=== PATIENT | female | born 1940 | race Caucasian/White ===

== ENCOUNTER → 2016-09-22 | Outpatient (CLI) | payer OTHER | LOC: BMCIMAGING 10:07 | PROVIDERS: ATTEND Podiatrist Foot & Ankle Surgery | DX: M19.071 Primary osteoarthritis, right ankle and foot (principal); M19.072 Primary osteoarthritis, left ankle and foot; M85.471 Solitary bone cyst, right ankle and foot; Q74.8 Other specified congenital malformations of limb(s) ==

== ENCOUNTER → 2018-03-02 | Outpatient (CLI) | payer OTHER ==
[~2018-03-02] MED LIST: IOPAMIDOL (ISOVUE-300) 200 ML BTL ONE
== END | disposition home or self-care (01) ==
LOC: FIMAGING 11:47
PROVIDERS: ATTEND Urology
DX: M75.111 Incomplete rotator cuff tear or rupture of right shoulder, not specified as traumatic (principal); N39.0 Urinary tract infection, site not specified; M75.51 Bursitis of right shoulder; M19.011 Primary osteoarthritis, right shoulder; M67.921 Unspecified disorder of synovium and tendon, right upper arm; N21.0 Calculus in bladder; I72.8 Aneurysm of other specified arteries; D25.9 Leiomyoma of uterus, unspecified; R93.41 Abnormal radiologic findings on diagnostic imaging of renal pelvis, ureter, or bladder; R93.3 Abnormal findings on diagnostic imaging of other parts of digestive tract
CPT/HCPCS: 73221; 74178; Q9967; 82565-PO

== ENCOUNTER 2018-03-31 06:22 | Day surgery (SDC) | payer OTHER ==
[2018-03-31] MEDS ORDERED: LR 1,000 ML IV ONE (06:37)
[2018-03-31] MEDS ORDERED: levOFLOXACIN 500 MG/DEXTROSE 100 ML IV ONE (07:20)
--- NOTE | 2018-03-31 07:20 | PDHPUP ---
History & Physical Update H&P update statement: This history and physical update is based on an assessment of the patient which was completed after admission or registration (within 24 hours), but prior to the surgery/procedure. H&P update: H&P reviewed & patient examined, no change in patient's condition since H&P completed
--- NOTE | 2018-03-31 07:41 | PDANEPAE ---
ANE History of Present Illness here for cystolithopexy ANE Past Medical History - Cardiovascular History Hx Hypertension: No Hx Arrhythmias: No Hx Chest Pain: No Hx Coronary Artery / Peripheral Vascular Disease: No Hx CHF / Valvular Disease: No Hx Palpitations: No - Pulmonary History Hx COPD: No Hx Asthma/Reactive Airway Disease: No Hx Recent Upper Respiratory Infection: No Hx Oxygen in Use at Home: No Hx Sleep Apnea: No Sleep Apnea Screening Result - Last Documented: Negative - Neurologic History Hx Cerebrovascular Accident: No Hx Seizures: No Hx Dementia: No - Endocrine History Hx Diabetes: No - Renal History Hx Renal Disorders: No - Liver History Hx Hepatic Disorders: No - Neurological & Psychiatric Hx Hx Neurological and Psychiatric Disorders: No - Cancer History Hx Cancer: No - Congenital Disorder History Hx Congenital Disorders: No - Other Health History Other Health History: sinus/nasal congestion - Chronic Pain History Chronic Pain: Yes (right shoulder) - Surgical History Prior Surgeries: bilat knee replacements ANE Review of Systems Review of systems is: negative Review of Systems: - Exercise capacity Exercise capacity: >=4 METS METS (RN): 4 METS ANE Patient History - Allergies Allergies/Adverse Reactions: Penicillins Allergy (Intermediate, Verified 03/31/18 06:46) Anaphylaxis ADHESIVES Allergy (Mild, Uncoded 09/20/12 13:59) RED, ITCHY GRASS Allergy (Mild, Uncoded 09/20/12 13:59) BUMPS detergent Allergy (Uncoded 03/31/18 06:46) Rash - Home Medications Home medications: home medication list seen and reviewed Home Medications: NK [No Known Home Meds] 03/30/18 [Last Taken Unknown] - NPO status NPO Status: no food or drink >8 hours NPO Since - Liquids (Date): 03/30/18 NPO Since - Liquids (Time): 22:00 NPO Since - Solids (Date): 03/30/18 NPO Since - Solids (Time): 17:00 - Anes Hx Anes Hx: no prior problems - Smoking Hx Smoking Status: Former smoker - Family Anes Hx Family Hx Anesthesia Complications: none ANE Labs/Vital Signs - Vital Signs Vital Signs: reviewed preoperatively; see RN documention for details Blood Pressure: 116/69 Heart Rate: 68 Respiratory Rate: 18 O2 Sat (%): 97 Height: 154.94 cm Weight: 52.163 kg ANE Physical Exam - Airway Neck exam: FROM Mallampati Score: Class 1 - Pulmonary Pulmonary: no respiratory distress - Cardiovascular Cardiovascular: regular rate and rhythym - ASA Status ASA Status: II ANE Anesthesia Plan Anesthesia Plan: GA w LMA
[2018-03-31] MEDS ORDERED: PROPOFOL/EMULSION 500 MG/50 ML BOTTLE IV ONE (07:47)
[2018-03-31] MEDS ORDERED: fentaNYL 100 MCG/2 ML INJ ONE (07:51)
[2018-03-31] MEDS ORDERED: DEXAMETHASONE 4 MG/ML VIAL ONE (07:55)
[2018-03-31] MEDS ORDERED: ONDANSETRON 4 MG/2 ML VIAL ONE (07:56)
[2018-03-31] MEDS ORDERED: NALOXONE HCL 0.4 MG/ML INJ IVP PRN (08:29)
[2018-03-31] MEDS ORDERED: HYDROmorphONE/DILAUDID 2 MG/ML INJ IVP PRN (08:29)
[2018-03-31] MEDS ORDERED: ALBUTEROL 3 ML DEYVIAL IH PRN (08:29)
[2018-03-31] MEDS ORDERED: LR 500 ML IV PRN (08:29)
[2018-03-31] MEDS ORDERED: DEXAMETHASONE 4 MG/ML VIAL IVP PRN (08:29)
[2018-03-31] MEDS ORDERED: ONDANSETRON 4 MG/2 ML VIAL IVP PRN (08:29)
[2018-03-31] MEDS ORDERED: NS 500 ML IV PRN (08:29)
--- NOTE | 2018-03-31 09:29 | GOP ---
DATE OF ADMISSION: 03/31/2018 PREOPERATIVE DIAGNOSIS: Bladder stone. POSTOPERATIVE DIAGNOSIS: Bladder stone with bladder foreign body. PROCEDURE: Cystoscopy, laser litholapaxy, removal of bladder foreign body. ANESTHESIA: General. INDICATIONS: This is a woman who presented with recurrent infection. OPERATIVE PROCEDURE: Consent obtained. Patient was brought in the operating room. Once general ane sthesia was underway, She was prepped and draped in the normal sterile fashion. A 25-Japanese rigid cy stoscope was passed into the bladder under direct vision. The bladder showed a large stone and eryth adia throughout. A 550 micron laser fiber was then passed through the scope, and utilizing laser ener gy at varying burrell, the stone was broken up into small pieces. The [employer] evacuator was utilized to remove the stone fragments. These were sent to Pathology for evaluation. Upon resection of the ston e, bladder foreign body was identified. This was noted to be a metallic spring, consistent with a abiel ne anchor. Rigid forceps were utilized to grasp this and pull this from the bladder wall. There als o seemed to be evidence of a mesh sling within the bladder. A hot knife was used to cut this out. T he base was cauterized with the bipolar button. All bleeding was controlled with this button. A Fol ey cathter was inserted, and the patient was transferred to the recovery room in good condition. /[id number]/MODL
--- NOTE | 2018-03-31 09:33 | POSTANESTH ---
Post Anesthetic Evaluation Cardiovascular Status: Normal, Stable Respiratory Status: Normal, Stable Level of Consciousness/Mental Status: Can Participate in Eval Pain Control: Adequate, Prn Tx Ordered Nausea/Vomiting Control: Adequate, Prn Tx Ordered Complications Possibly Related to Anesthesia: None Noted
[2018-03-31 11:01] VITALS: BP 122/67
== END 2018-03-31 11:08 | disposition home or self-care (01) ==
LOC: FSGY 06:22
PROVIDERS: ATTEND Urology
PROC: 0TFB8ZZ Fragmentation in Bladder, Via Natural or Artificial Opening Endoscopic (ICD-10-PCS; principal; 2018-03-31 07:48)
PROC: 0TCB8ZZ Extirpation of Matter from Bladder, Via Natural or Artificial Opening Endoscopic (ICD-10-PCS; principal; 2018-03-31 07:48)
DX: N21.0 Calculus in bladder (principal); T19.1XXA Foreign body in bladder, initial encounter
CPT/HCPCS: 82365-90; J1100; J1956; J2405; J2704; J3010

== ENCOUNTER 2018-05-18 22:37 | Emergency (ER) | payer OTHER ==
--- NOTE | 2018-05-18 23:05 | EDPHY ---
H & P Stated Complaint: hasn't urinated since 1699 Time Seen by Provider: 05/18/18 22:56 HPI/ROS: HPI: This is an 78-year-old female who presents with Chief Complaint: hasn't urinated since 1699 Location: Quality: Inability to urinate Duration: 6 hr Signs and Symptoms: no fever, no nausea, no vomiting, no hematemesis, no blood in stool, no abdominal bloating, no diarrhea, no back pain, no urinary symptoms , no vaginal bleeding/discharge, no indigestion, no chest pain, no shortness of breath, + suprapubic pressure Timing: Acute, rapidly worsening Severity: Moderate Context: Patient reports that she had "urethral plumping" performed today by Dr. Rice for urinary incontinence. She reports that she was able to urinate after surgery but has not been able to urinate in the last 6 hr. She reports suprapubic discomfort. Denies fever, back pain, vaginal discharge, vaginal bleeding. Modifying Factors: None Comment: ROS: A comprehensive 10 system review of systems is otherwise negative aside from elements mentioned in the history of present illness. MEDICAL/SURGICAL/SOCIAL HISTORY: Medical history: bilat knees, bladder stone, procedure for incont Surgical history: Denies Social history: Former smoker. Family history noncontributory. CONSTITUTIONAL: Adult white female who appears younger than stated age, pacing around room, awake and alert, no obvious distress HEENT: Atraumatic and normocephalic, PERRL, EOMI. Nares patent; no rhinorrhea; no nasal mucosal edema. Tympanic membranes clear. Oropharynx clear, no exudate and moist pink mucosa. Airway patent. No lymphadenopathy. No meningismus. Cardiovascular: Normal S1/S2, tachycardia, regular rhythm, without murmur rub or gallop. PULMONARY/CHEST: Symmetrical and nontender. Clear to auscultation bilaterally. Good air movement. No accessory muscle usage. ABDOMEN: Soft, nondistended, moderate suprapubic tenderness, no rebound, no guarding, no peritoneal signs, no masses or organomegaly. No CVAT. EXTREMITIES: 2/2 pulses, strength 5/5, no deformities, no clubbing, no cyanosis or edema. NEUROLOGICAL: no focal neuro deficits. GCS 15. SKIN: Warm and dry, no erythema. no rash. Good capillary refill. Source: Patient Exam Limitations: No limitations - Personal History Current Tetanus/Diphtheria Vaccine: Unsure Current Tetanus Diphtheria and Acellular Pertussis (TDAP): Unsure - Medical/Surgical History Hx Asthma: No Hx Chronic Respiratory Disease: No Hx Diabetes: No Hx Cardiac Disease: No Hx Renal Disease: No Hx Cirrhosis: No Hx Alcoholism: No Hx HIV/AIDS: No Hx Splenectomy or Spleen Trauma: No Other PMH: bilat knees, bladder stone, procedure for incont - Social History Smoking Status: Former smoker Constitutional: Initial Vital Signs Temperature (C) 37.2 C 05/18/18 22:40 Heart Rate 104 H 05/18/18 22:40 Respiratory Rate 18 05/18/18 22:40 Blood Pressure 203/105 H 05/18/18 22:40 O2 Sat (%) 97 05/18/18 22:40 O2 Delivery Mode Room Air Allergies/Adverse Reactions: Penicillins Allergy (Intermediate, Verified 05/18/18 22:44) Anaphylaxis ADHESIVES Allergy (Mild, Uncoded 05/18/18 22:44) RED, ITCHY GRASS Allergy (Mild, Uncoded 05/18/18 22:44) BUMPS detergent Allergy (Uncoded 05/18/18 22:44) Rash Home Medications: Medication Instructions Recorded NK [No Known Home Meds] 05/18/18 Medical Decision Making ED Course/Re-evaluation: Signs reviewed and show extremely elevated blood pressure and tachycardia likely secondary to pain. Bladder scan at bedside per tech shows 908 mL Castellano catheter placed and 800 cc clear yellow urine removed. Urinalysis ordered and shows 2+ blood, likely from Castellano insertion but no cornoa signs of infection. Repeat blood pressure at discharge was 169/89 Patient has a follow-up appointment already scheduled with Dr. Rice tomorrow. This patient was seen under the supervision of my secondary supervising physician. I evaluated care for this patient independently. Discussed this patient with Dr. King. Differential Diagnosis: Differential diagnosis includes but is not limited to urinary retention, urinary tract infection, pyelonephritis, sepsis. - Data Points Laboratory Results: 05/18/18 23:25 Urine Color PALE YELLOW Urine Appearance CLEAR Urine pH 6.0 (5.0-7.5) Ur Specific [place] 1.005 (1.002-1.030) Urine Protein NEGATIVE (NEGATIVE) Urine Ketones NEGATIVE (NEGATIVE) Urine Blood 2+ H (NEGATIVE) Urine Nitrate NEGATIVE (NEGATIVE) Urine Bilirubin NEGATIVE (NEGATIVE) Urine Urobilinogen NEGATIVE EU EU (0.2-1.0) Ur Leukocyte Esterase NEGATIVE (NEGATIVE) Urine RBC 5-10 /hpf H /hpf (0-3) Urine WBC 1-3 /hpf /hpf (0-3) Ur Epithelial Cells NONE SEEN /lpf /lpf (NONE-1+) Urine Glucose NEGATIVE (NEGATIVE) Departure - Departure Disposition: Home, Routine, Self-Care Clinical Impression: Acute urinary retention Condition: Good Instructions: Castellano Catheter Placement and Care (ED), Acute Urinary Retention in Women (ED) Additional Instructions: Please keep Castellano in place until you see Dr. Rice tomorrow. Referrals: Georgia Moran MD [Primary Care Provider] - As per Instructions Richmond Rice MD [Medical Doctor] - As per Instructions
[2018-05-18 23:59] VITALS: BP 142/91
== END 2018-05-18 23:59 | disposition home or self-care (01) ==
PROC: 0T9B70Z Drainage of Bladder with Drainage Device, Via Natural or Artificial Opening (ICD-10-PCS; principal; 2018-05-18)
PROC: 4A0D7LZ Measurement of Urinary Volume, Via Natural or Artificial Opening (ICD-10-PCS; principal; 2018-05-18)
DX: R33.9 Retention of urine, unspecified (principal)